=== PATIENT | female | born 1990 | race Caucasian/White ===

== ENCOUNTER → 2016-08-31 | Outpatient (REF) | payer OTHER ==
[~2016-08-31] MED LIST: PRENTAB9 PO
== END ==
LOC: M LAB REF 12:50
PROVIDERS: ATTEND Obstetrics & Gynecology
DX: Z36 Encounter for antenatal screening of mother (principal)

== ENCOUNTER → 2016-09-08 | Outpatient (CLI) | payer OTHER ==
--- NOTE | 2016-09-08 16:57 | REP ---
Limited obstetric sonography: History: Supervision of for amniotic fluid assessment and estimated weight. Findings: Scanning through the gravid uterus demonstrates a viable single intrauterine gestation in a cephalic lie. motion is observed and heart rate is recorded at 133 beats per minute. A posterior grade two placenta is seen without evidence of previa or abruption. Amniotic fluid is subjectively normal. Amniotic fluid index is normal at 15.3 cm (7.4 to 24.4 cm). Closed cervical length is 2.3 cm. There has been appropriate interval growth. Umbilical cord is seen draping across shoulders. Exam quality is inhibited some degree by advanced gestational age. SD ratio in the umbilical cord artery by Doppler is normal at 1.79. Biometry chart: BPD 9.1 cm = 36 weeks 6 days Head circumference 31.8 cm = 35 weeks 5 days Abdominal circumference 33.6 cm = 37 weeks 4 days Femur length 6.8 cm = 35 weeks 0 days Humeral length 6.0 cm = 34 weeks 5 days HC/AC ratio normal 0.95, cephalic index normal 0.82, estimated weight 2989 grams, 6 pounds 9 ounces, 40th percentile for 37 weeks 4 days. Impression: Viable single intrauterine gestation at 36 weeks 0 days by today's composite criteria. Expected gestational age estimate based on prior sonography 37 weeks 4 days. Estimated weight is in the 40th percentile. ELIS by prior sonography 09/25/2016. Signed by Antonio Gonzalez MD 09/08/2016 08:16 P
== END ==
LOC: M RAD 15:06
PROVIDERS: ATTEND Obstetrics & Gynecology
DX: O41.03X1 Oligohydramnios, third trimester, fetus 1 (principal); Z3A.36 36 weeks gestation of pregnancy

== ENCOUNTER 2016-10-01 03:04 | Inpatient (IN) | payer OTHER ==
[2016-10-01] VITALS (60 sets, daily range): BP systolic 84–140; BP diastolic 50–88
[~2016-10-01] VITALS: Ht 160 cm; Wt 66.0 kg
[2016-10-01] MEDS ORDERED: VALT500T PO (06:42)
[2016-10-01] MEDS ORDERED: FERR325T3 PO (06:44)
[2016-10-01] MEDS ORDERED: AMPICILLIN SOD 2 GM in D5W MINI-BAG PLUS 100 ML IV STA (07:31)
--- NOTE | 2016-10-01 07:42 | HPE ---
DATE OF ADMISSION: 10/01/2016 REASON FOR ADMISSION: Labor. HISTORY OF PRESENT ILLNESS: This patient is a 26-year-old, 1, para 0, who presents at 40 weeks 6 days estimated gestational age by a first trimester ultrasound with complaints of contractions. She reports active movements, but denies any vaginal bleeding or leakage of fluid. She reports that the contractions started earlier in the evening and increased in intensity and frequency throughout the night. Her course has been unremarkable. She initiated care in the first trimester and has been appropriate throughout. PAST MEDICAL HISTORY: None. PAST SURGICAL HISTORY: None. PAST OBSTETRICAL HISTORY: She is a 1, para 0. 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 She is afebrile. GENERAL APPEARANCE: Well appearing, in no acute distress. She has a Category 1 heart rate tracing with contractions approximately every 3 minutes on the tocometer. CARDIOVASCULAR: Heart regular rate and rhythm. LUNGS: Clear to auscultation bilaterally. ABDOMEN: Soft. Gravid. Nontender. Estimated weight (EFW) 3600 grams. CERVICAL EXAM: She is 3 cm, completely effaced, -2 station. LABS: Blood type is O positive. Antibody screen is negative. Rubella is immune. RPR nonreactive. Hepatitis surface antigen is negative. HIV is negative. Hepatitis C nonreactive. Chlamydia and gonorrhea screens are negative. She had a normal one hour Glucola. She is GBS positive. ASSESSMENT: 1. This patient is a 26-year-old, 1, at 40 weeks and 6 days estimated gestational age who appears to be in labor. 2. Reassuring status. 3. GBS positive. PLAN: 1. To admit to labor and delivery. CBC, RPR, type and screen. 2. Antibiotics for GBS prophylaxis. 3. Patient is a good candidate for an epidural. 4. Anticipate spontaneous vaginal delivery.
[2016-10-01 08:27] LABS: MEAN CORPUSCULAR HEMOGLOBIN 29.7 pg (27.0-33.0); MEAN CORPUSCULAR HGB CONC 33.3 g/dl (32.0-36.5); MEAN CORPUSCULAR VOLUME 89.3 fl (80.0-96.0); RED CELL DISTRIBUTION WIDTH 15.1 % (11.5-14.5); WHITE BLOOD COUNT 11.8 K/mm3 (4.0-10.0)
[2016-10-01] MEDS ORDERED: FENTANYL 2MCG/ML ROPIVACAINE 0.2% NACL 250 ML CADD As Ordered ONE (09:11)
[2016-10-01] MEDS ORDERED: FENTANYL/ROPIVACAINE/NACL CADD 250 ML EPIDURAL SCH (10:30)
[2016-10-01] MEDS ORDERED: EPIDURAL COMMENT XX SCH (10:30)
[2016-10-01] MEDS ORDERED: EPIDURAL/PCA KEYS XX PRN (10:30)
[2016-10-01] MEDS ORDERED: REFRIGERATOR IV KEYS XX PRN (10:30)
[2016-10-01] MEDS ORDERED: LACTATED RINGER'S 1000 ML IV PRN (10:30)
[2016-10-01] MEDS ORDERED: ONDANSETRON 4MG/2ML VIAL (J2405) IV PRN ×2 (10:30→22:30)
[2016-10-01] MEDS ORDERED: diphenhydrAMINE INJ 50MG/ML VIAL (J1200) IV PRN (10:30)
[2016-10-01] MEDS ORDERED: NALOXONE INJ 0.4 MG/1 ML VIAL (J2310) IV PRN (10:30)
[2016-10-01] MEDS: AMPICILLIN SOD 1 GM in D5W MINI-BAG PLUS 50 ML IV SCH ×2 (12:47→17:06)
[2016-10-01] MEDS ORDERED: OXYTOCIN DRIP 30 UNITS in APPROPRIATE DILUENT 1 EA IV SCH ×2 (17:15→22:27)
[2016-10-01] MEDS: ePHEDrine SULFATE 25 MG/5 ML(5MG/ML) SYRINGE IV PRN ×3 (17:51→18:04)
[2016-10-01] MEDS ORDERED: LR 1,000 ML IV SCH (22:27)
[2016-10-01] MEDS ORDERED: RHOGAM 300 MCG (1500 IU) INJ (J2790) IM SCH (22:30)
[2016-10-01] MEDS ORDERED: ACETAMINOPHEN 500 MG TAB PO PRN (22:30)
[2016-10-01] MEDS ORDERED: DIBUCAINE 1% OINTMENT 30GM TOP PRN (22:30)
[2016-10-01] MEDS ORDERED: METHYLERGONOVINE MALEATE 0.2 MG TAB PO PRN (22:30)
[2016-10-01] MEDS ORDERED: PROMETHAZINE 25 MG TAB PO PRN (22:30)
[2016-10-01] MEDS ORDERED: IBUPROFEN 800 MG TAB PO PRN (22:30)
[2016-10-01] MEDS ORDERED: DOCUSATE SODIUM 100 MG CAP PO PRN (22:30)
[2016-10-01] MEDS ORDERED: MEASLES,MUMPS,RUBELLA VACCINE INJ (MMR-II) (90707) SC SCH (22:30)
[2016-10-02 01:15] VITALS: BP 122/58
[2016-10-02 06:00] VITALS: BP 115/59
[2016-10-02] MEDS: PRENATAL VITAMIN TAB PO SCH (09:53)
[2016-10-02 18:12] VITALS: BP 108/58
[2016-10-03 06:44] VITALS: BP 109/63
[2016-10-03] MEDS ORDERED: ACET50TA PO (08:05)
[2016-10-03] MEDS ORDERED: IBUP-1114 PO (08:08)
[2016-10-03] MEDS: PRENATAL VITAMIN TAB PO SCH (10:30)
== END 2016-10-03 10:50 | disposition home or self-care (01) | DRG 775 ==
LOC: M LDO 03:04 → M LDI 07:18 → M OBS 10-02 01:19
PROVIDERS: ADMIT Obstetrics & Gynecology; ATTEND Obstetrics & Gynecology
PROC: 10E0XZZ Delivery of Products of Conception, External Approach (ICD-10-PCS; principal; 2016-10-01)
PROC: 0HQ9XZZ Repair Perineum Skin, External Approach (ICD-10-PCS; 2016-10-01)
DX: O48.0 Post-term pregnancy (principal); O99.824 Streptococcus B carrier state complicating childbirth; Z3A.40 40 weeks gestation of pregnancy; O70.0 First degree perineal laceration during delivery; Z37.0 Single live birth

== ENCOUNTER → 2017-10-25 | Outpatient (CLI) | payer OTHER ==
[2017-10-25 08:35] LABS: BASO % 0.6 % (0.0-1.0); EOS # 0.1 10^3/uL (0.0-0.50); EOS % 0.9 % (0.0-3.0); HEMATOCRIT 40.6 % (36.0-47.0); HEMOGLOBIN 13.6 g/dl (12.0-16.0); IMMATURE GRANULOCYTE % 0.2 % (0-3.0); LYMPH # 2.1 10^3/uL (1.5-6.5); LYMPH % 38.8 % (24.0-44.0); MEAN CORPUSCULAR HEMOGLOBIN 30.6 pg (27.0-33.0); MEAN CORPUSCULAR HGB CONC 33.5 g/dl (32.0-36.5); MEAN CORPUSCULAR VOLUME 91.4 fl (80.0-96.0); MONO # 0.3 10^3/uL (0.0-0.8); MONO % 6.3 % (0.0-5.0); NEUTROPHILS # 2.9 10^3/uL (1.8-7.7); NEUTROPHILS % 53.2 % (36.0-66.0); PLATELET COUNT, AUTOMATED 260 10^3/uL (150-450); RED BLOOD COUNT 4.44 10^6/uL (4.00-5.40); RED CELL DISTRIBUTION WIDTH 13.2 % (11.5-14.5); WHITE BLOOD COUNT 5.4 10^3/uL (4.0-10.0)
[2017-10-25 09:06] LABS: ALBUMIN 3.9 GM/DL (3.2-5.2); ALBUMIN/GLOBULIN RATIO 1.08 (1.00-1.93); ALKALINE PHOSPHATASE 59 U/L (45-117); ALT/SGPT 15 U/L (12-78); ANION GAP 8 MEQ/L (8-16); AST/SGOT 14 U/L (7-37); BILIRUBIN,TOTAL 0.4 MG/DL (0.2-1.0); BLOOD UREA NITROGEN 6 MG/DL (7-18); CALCIUM LEVEL 8.5 MG/DL (8.5-10.1); CARBON DIOXIDE LEVEL 27 MEQ/L (21-32); CHLORIDE LEVEL 106 MEQ/L (98-107); CREATININE FOR GFR 0.84 MG/DL (0.55-1.30); GLOMERULAR FILTRATION RATE > 60.0 (>60); GLUCOSE, FASTING 90 MG/DL (70-100); POTASSIUM SERUM 3.8 MEQ/L (3.5-5.1); SODIUM LEVEL 141 MEQ/L (136-145); TOTAL PROTEIN 7.5 GM/DL (6.4-8.2)
== END ==
LOC: M LAB 08:05
DX: R53.83 Other fatigue (principal)

== ENCOUNTER → 2018-02-14 | Outpatient (CLI) | payer OTHER ==
[2018-02-14 07:52] LABS: BASO % 0.5 % (0.0-1.0); EOS # 0.1 10^3/uL (0.0-0.50); EOS % 1.1 % (0.0-3.0); HEMATOCRIT 39.2 % (36.0-47.0); HEMOGLOBIN 13.3 g/dl (12.0-15.5); IMMATURE GRANULOCYTE % 0.4 % (0-3.0); LYMPH # 2.5 10^3/uL (1.5-6.5); LYMPH % 30.7 % (24.0-44.0); MEAN CORPUSCULAR HEMOGLOBIN 31.2 pg (27.0-33.0); MEAN CORPUSCULAR HGB CONC 33.9 g/dl (32.0-36.5); MONO # 0.5 10^3/uL (0.0-0.8); MONO % 5.8 % (0.0-5.0); NEUTROPHILS % 61.5 % (36.0-66.0); PLATELET COUNT, AUTOMATED 259 10^3/uL (150-450); RED BLOOD COUNT 4.26 10^6/uL (4.00-5.40); RED CELL DISTRIBUTION WIDTH 13.5 % (11.5-14.5); WHITE BLOOD COUNT 8.1 10^3/uL (4.0-10.0)
[2018-02-14 11:01] LABS: CHLAMYDIA DNA AMPLIFICATION NEGATIVE (NEGATIVE); GC DNA AMPLIFICATION NEGATIVE (NEGATIVE)
[2018-02-15 10:16] LABS: RUBELLA IgG QUALITATIVE IMMUNE (IMMUNE)
[2018-02-15 10:33] LABS: HBsAg Prenatal NEGATIVE (NEGATIVE)
[2018-02-15 10:46] LABS: HEPATITIS C VIRUS ABY INDEX 0.1 INDEX (<0.8)
[2018-02-15 10:46] LABS: HIV 1&2 SCREEN CENTAUR NEGATIVE (NEGATIVE)
== END ==
LOC: M LAB 06:57
DX: Z34.81 Encounter for supervision of other normal pregnancy, first trimester (principal); Z3A.00 Weeks of gestation of pregnancy not specified
CPT/HCPCS: 86762

== ENCOUNTER → 2018-03-06 | Outpatient (REF) | payer OTHER | LOC: M LABDRAW1 10:57 | DX: Z36.89 Encounter for other specified antenatal screening (principal) | CPT/HCPCS: 36415 ==

== ENCOUNTER → 2018-04-11 | Outpatient (CLI) | payer OTHER, SELFPAY | LOC: M LAB 12:32 | DX: Z34.81 Encounter for supervision of other normal pregnancy, first trimester (principal) | CPT/HCPCS: 36415 ==

== ENCOUNTER → 2018-04-28 | Outpatient (CLI) | payer OTHER, SELFPAY | LOC: M RAD 08:34 | DX: Z36.89 Encounter for other specified antenatal screening (principal); Z3A.20 20 weeks gestation of pregnancy | CPT/HCPCS: 76811 ==

== ENCOUNTER → 2018-05-31 | Outpatient (CLI) | payer BC | LOC: M RAD 14:35 | DX: Z34.82 Encounter for supervision of other normal pregnancy, second trimester (principal); Z36.89 Encounter for other specified antenatal screening; Z3A.24 24 weeks gestation of pregnancy | CPT/HCPCS: 76816 ==

== ENCOUNTER → 2018-06-14 | Outpatient (CLI) | payer BC ==
[2018-06-14 08:30] LABS: HEMATOCRIT 34.1 % (36.0-47.0); HEMOGLOBIN 11.2 g/dl (12.0-15.5); MEAN CORPUSCULAR HEMOGLOBIN 32.6 pg (27.0-33.0); MEAN CORPUSCULAR HGB CONC 32.8 g/dl (32.0-36.5); MEAN CORPUSCULAR VOLUME 99.1 fl (80.0-96.0); PLATELET COUNT, AUTOMATED 257 10^3/uL (150-450); RED BLOOD COUNT 3.44 10^6/uL (4.00-5.40); WHITE BLOOD COUNT 10.1 10^3/uL (4.0-10.0)
[2018-06-14 08:39] LABS: GLUCOSE CHALLENGE TEST 1 HOUR 92 MG/DL (LESS THAN 140)
== END ==
LOC: M LAB 06:17
DX: Z34.82 Encounter for supervision of other normal pregnancy, second trimester (principal); Z3A.00 Weeks of gestation of pregnancy not specified
CPT/HCPCS: 82950

== ENCOUNTER → 2018-08-18 | Outpatient (REF) | payer BC ==
[~2018-08-18] MED LIST changes: +FERR325T3 PO; +IBUP-1114 PO; +MAPA500T2 PO; +VALT500T PO
== END ==
LOC: M LAB REF 16:36
PROVIDERS: ATTEND Advanced Practice Midwife
DX: Z34.83 Encounter for supervision of other normal pregnancy, third trimester (principal)

== ENCOUNTER 2018-09-15 04:25 | Inpatient (IN) | payer BC ==
[2018-09-15] VITALS (60 sets, daily range): BP systolic 86–133; BP diastolic 44–90
[~2018-09-15] VITALS: Ht 160 cm; Wt 72.5 kg
[2018-09-15] MEDS ORDERED: PENICILLIN G POTASSIUM IV 5 MU in D5W MINI-BAG PLUS 100 ML IV STA (07:15)
[2018-09-15 07:49] LABS: HEMATOCRIT 36.6 % (36.0-47.0); HEMOGLOBIN 11.9 g/dl (12.0-15.5); MEAN CORPUSCULAR HEMOGLOBIN 29.9 pg (27.0-33.0); MEAN CORPUSCULAR HGB CONC 32.5 g/dl (32.0-36.5); PLATELET COUNT, AUTOMATED 277 10^3/uL (150-450); RED BLOOD COUNT 3.98 10^6/uL (4.00-5.40)
[2018-09-15] MEDS ORDERED: FENTANYL 2MCG/ML ROPIVACAINE 0.2% IN 0.9% NACL 100ML IVBAG As Ordered ONE (08:43)
[2018-09-15] MEDS ORDERED: ePHEDrine SULFATE 25 MG/5 ML(5MG/ML) SYRINGE As Ordered ONE (09:15)
[2018-09-15] MEDS ORDERED: ePHEDrine SULFATE 25 MG/5 ML(5MG/ML) SYRINGE IV PRN (09:45)
[2018-09-15] MEDS ORDERED: EPIDURAL COMMENT XX SCH (09:45)
[2018-09-15] MEDS ORDERED: NALOXONE INJ 0.4 MG/1 ML VIAL (J2310) IV PRN (09:45)
[2018-09-15] MEDS ORDERED: ONDANSETRON 4MG/2ML VIAL (J2405) IV PRN ×2 (09:45→15:30)
[2018-09-15] MEDS ORDERED: REFRIGERATOR IV KEYS XX PRN (09:45)
[2018-09-15] MEDS ORDERED: EPIDURAL/PCA KEYS XX PRN (09:45)
[2018-09-15] MEDS ORDERED: FENTANYL/ROPIVACAINE/NACL BAG 100 ML EPIDURAL SCH (09:45)
[2018-09-15] MEDS ORDERED: diphenhydrAMINE INJ 50MG/ML VIAL (J1200) IV PRN (09:45)
[2018-09-15] MEDS ORDERED: LACTATED RINGER'S 1000 ML IV PRN (09:45)
[2018-09-15] MEDS ORDERED: PENICILLIN G POTASSIUM IV 2.5 MU in APPROPRIATE DILUENT 1 EA IV SCH (12:00)
--- NOTE | 2018-09-15 13:04 | NUR ---
L&D H&P HPI: 28 year old at 40+1 weeks estimated gestation. Expected date of confinement: 09/14/18. dated by LMP c/w first TM US. Presented earlier this morning with painful,frequent uterine contractions for several hour s. Denies vaginal bleeding, loss of fluid. Reports regular movement. course uncomplicated. She has been taking Valtrex 500mg BID for gHSV prophylaxis. History of LGA/prolonged second stage of labor with first delivery. labs: Blood type O+, antibody screen negative, rubella immune, VDRL nonreactive , hepatitis B surface antigen negative, HIV negative, hepatitis C antibody negative, GC/CT negative, aneuploidy/maternal serum screening: negative, 1 hour glucose challenge test: 92, GBS positive. Vaccinations: Tdap 06/26/18 Flu vaccine given Radiology/OB US: no anomalies or placental abnormalities detected. History Past medical history: seasonal allergies Surgical history: none Medications: PNV Allergies: NKDA INFORMATION ASSURANCE ENGINEER history: one previous gHSV outbreak (none during this ), no other STI OB history: G1: 09/2016: 9lbs 14oz, after prolonged second stage (4 hours), no dystocia or severe Social history: no t/e/d Family history: no MR, VTE Objective Vitals: Normotensive, mild tachycardia, afebrile Abdomen: Uterine fundal height consistent with dates. No guarding or rebound tenderness. Extremities: No clubbing, cyanosis or edema. Sterile vaginal exam: 3-4 cm, 80 %effacement, -3 station, cephalic, intact (upon admission) External monitoring: heart rate category 1 Tocodynamometer: contractions occurring 2-7min Assessment/Plan 28 year old at 40+1 weeks gestation. Diagnosis: active labor at term. Reassuring and maternal status. -Admit to labor and delivery with routine labs and orders -External monitoring and tocodynamometer -Pediatrics and anesthesia consultations as needed. -GBS prophylaxis with IV penicillin -Augment labor with Pitocin as needed Dr. Eliazar Ricks, DO, FACOG
--- NOTE | 2018-09-15 13:09 | NUR ---
Progress Note Pt comfortable with epidural. Small amount of bloody show, but no large loss of fluid. +FM. Normotensive, tachycardic 120-140bpm (O2 sat 95-100%), afebrile SVE: 9cm, 100, -1, bulging intact membranes (around [id number]) EFM: Cat I [place]: ctxs every 2-5min A/P: Normal progression of active labor. Approaching second stage of labor. Reassuring maternal and status. -Repeat SVE 2-4 hours or sooner PRN Heladio Ricks DO
--- NOTE | 2018-09-15 15:23 | NUR ---
Delivery note Spontaneous vaginal delivery Estimated gestational age at delivery: 40+1 weeks The active phase and second stage of labor progressed in normal fashion with epidural anesthesia. Patient DID NOT receive Pitocin labor augmentation. She received a full course of GBS prophylaxis. Pt had screened GBS+. FHR Cat I throughout labor. The head delivered left occiput anterior and restituted left occiput transverse. No nuchal cord was noted. The anterior shoulder delivered with gentle downward guidance and the remainder of the body delivered with ease. Cord clamping was delayed for approximately 1 minute after delivery. After doubly clamping the cord, I guided the FOB to cut the cord. The was placed on the patient's chest for immediate bonding. [place] data: Apgars 9 and 9. weight 3720 grams 8 pounds, 3 ounces. Time of delivery: 1456. Sex: Female. The third stage of labor was actively managed with a bolus of IV Pitocin (30 units in 500 mL of normal saline). The placenta delivered completely intact with no missing cotyledons at 1502. A three-vessel cord with a central insertion was noted. After delivery of the placenta, the uterine fundus was approximately 2 cm below the umbilicus and firm. IV Pitocin was continued to maintain uterine tone. A normal, low level of uterine bleeding was noted. The cervix, vagina, vulva and perineum were inspected for lacerations. No laceration was noted. Excellent hemostasis was noted. Estimated blood loss: 200ml. All sponges, needles, and instruments were accounted for per [facility] [employer] department protocol. Eliazar Ricks D.O., F.A.C.ODebra.
[2018-09-15] MEDS ORDERED: OXYTOCIN DRIP 30 UNITS in APPROPRIATE DILUENT 1 EA IV SCH (15:26)
[2018-09-15] MEDS ORDERED: LR 1,000 ML IV SCH (15:26)
[2018-09-15] MEDS ORDERED: PROMETHAZINE 25 MG TAB PO PRN (15:30)
[2018-09-15] MEDS ORDERED: IBUPROFEN 800 MG TAB PO PRN (15:30)
[2018-09-15] MEDS ORDERED: MEASLES,MUMPS,RUBELLA VACCINE INJ (MMR-II) (90707) SC SCH (15:30)
[2018-09-15] MEDS ORDERED: RHOGAM 300 MCG (1500 IU) INJ (J2790) IM SCH (15:30)
[2018-09-15] MEDS ORDERED: DOCUSATE SODIUM 100 MG CAP PO PRN (15:30)
[2018-09-15] MEDS ORDERED: DIBUCAINE 1% OINTMENT 30GM TOP PRN (15:30)
[2018-09-15] MEDS ORDERED: ACETAMINOPHEN 500 MG TAB PO PRN (15:30)
[2018-09-16 06:00] VITALS: BP 102/64
[2018-09-16] MEDS ORDERED: PRENATAL VITAMINS CHEWABLE TABLET PO SCH (09:00)
[2018-09-16] MEDS ORDERED: IBUP-1114 PO (09:27)
[2018-09-16] MEDS ORDERED: MAPA500T2 PO (09:27)
== END 2018-09-16 17:13 | disposition home or self-care (01) | DRG 560 ==
LOC: M LDO 04:25 → M LDI 06:59 → M OBS 17:25
PROVIDERS: ADMIT Obstetrics & Gynecology; ATTEND Obstetrics & Gynecology
PROC: 10E0XZZ Delivery of Products of Conception, External Approach (ICD-10-PCS; principal; 2018-09-15)
DX: O48.0 Post-term pregnancy (principal); Z3A.40 40 weeks gestation of pregnancy; O99.824 Streptococcus B carrier state complicating childbirth; Z37.0 Single live birth

== ENCOUNTER → 2018-11-29 | Outpatient (REF) | payer BC | LOC: M LAB REF 13:40 | PROVIDERS: ATTEND Obstetrics & Gynecology | DX: Z12.4 Encounter for screening for malignant neoplasm of cervix (principal) ==

== ENCOUNTER → 2019-01-12 | Outpatient (REF) | payer BC ==
[2019-01-12 12:04] LABS: BASO % 0.5 % (0.0-1.0); EOS # 0.1 10^3/uL (0.0-0.50); EOS % 1.2 % (0.0-3.0); HEMATOCRIT 39.6 % (36.0-47.0); HEMOGLOBIN 12.9 g/dl (12.0-15.5); LYMPH # 2.3 10^3/uL (1.5-6.5); LYMPH % 38.6 % (24.0-44.0); MEAN CORPUSCULAR HEMOGLOBIN 29.9 pg (27.0-33.0); MEAN CORPUSCULAR HGB CONC 32.6 g/dl (32.0-36.5); MEAN CORPUSCULAR VOLUME 91.9 fl (80.0-96.0); MONO # 0.3 10^3/uL (0.0-0.8); MONO % 5.7 % (0.0-5.0); NEUTROPHILS # 3.2 10^3/uL (1.8-7.7); NEUTROPHILS % 53.8 % (36.0-66.0); PLATELET COUNT, AUTOMATED 282 10^3/uL (150-450); RED BLOOD COUNT 4.31 10^6/uL (4.00-5.40); WHITE BLOOD COUNT 5.9 10^3/uL (4.0-10.0)
[2019-01-12 12:27] LABS: ALT/SGPT 33 U/L (12-78); BILIRUBIN,TOTAL 0.4 MG/DL (0.2-1.0); BLOOD UREA NITROGEN 10 MG/DL (7-18); CARBON DIOXIDE LEVEL 28 MEQ/L (21-32); CHLORIDE LEVEL 106 MEQ/L (98-107); CHOLESTEROL LEVEL 211 MG/DL (<200); CREATININE FOR GFR 0.66 MG/DL (0.55-1.30); GLOMERULAR FILTRATION RATE > 60.0 (>60); GLUCOSE, FASTING 90 MG/DL (70-100); HDL CHOLESTEROL 72 MG/DL (>40); LDL CHOLESTEROL 124 MG/DL (<100); NON-HDL-C 139 MG/DL; POTASSIUM SERUM 4.1 MEQ/L (3.5-5.1); SODIUM LEVEL 141 MEQ/L (136-145); TOTAL PROTEIN 7.6 GM/DL (6.4-8.2); TRIGLYCERIDES LEVEL 77 MG/DL (<150)
== END ==
LOC: M LABDRAW1 11:47
PROVIDERS: ATTEND Family Medicine
DX: Z00.00 Encounter for general adult medical examination without abnormal findings (principal)

== ENCOUNTER → 2019-04-05 | Outpatient (CLI) | payer BC ==
[2019-04-05 13:31] LABS: BASO % 0.2 % (0.0-1.0); EOS # 0.1 10^3/uL (0.0-0.50); EOS % 0.9 % (0.0-3.0); HEMATOCRIT 41.5 % (36.0-47.0); HEMOGLOBIN 13.7 g/dl (12.0-15.5); LYMPH # 2.5 10^3/uL (1.5-4.5); LYMPH % 28.1 % (24.0-44.0); MEAN CORPUSCULAR HEMOGLOBIN 30.8 pg (27.0-33.0); MEAN CORPUSCULAR VOLUME 93.3 fl (80.0-96.0); MONO # 0.5 10^3/uL (0.0-0.8); NEUTROPHILS # 5.9 10^3/uL (1.8-7.7); NEUTROPHILS % 65.5 % (36.0-66.0); PLATELET COUNT, AUTOMATED 310 10^3/uL (150-450); RED BLOOD COUNT 4.45 10^6/uL (4.00-5.40)
[2019-04-05 15:31] LABS: CHLAMYDIA DNA AMPLIFICATION NEGATIVE (NEGATIVE); GC DNA AMPLIFICATION NEGATIVE (NEGATIVE)
[2019-04-06 12:02] LABS: HEPATITIS C VIRUS ABY INDEX 0.1 INDEX (<0.8); HIV 1&2 SCREEN CENTAUR NEGATIVE (NEGATIVE); RUBELLA IgG QUALITATIVE IMMUNE (IMMUNE)
== END ==
LOC: M SMT 10:24
PROVIDERS: ATTEND Obstetrics & Gynecology
DX: Z34.81 Encounter for supervision of other normal pregnancy, first trimester (principal)

== ENCOUNTER → 2019-04-25 | Outpatient (CLI) | payer BC | LOC: M SMT 15:43 | PROVIDERS: ATTEND Advanced Practice Midwife | DX: Z34.81 Encounter for supervision of other normal pregnancy, first trimester (principal); Z3A.00 Weeks of gestation of pregnancy not specified ==

== ENCOUNTER → 2019-08-28 | Outpatient (CLI) | payer BC, OTHER ==
[2019-08-28 17:34] LABS: HEMATOCRIT 32.7 % (36.0-47.0); HEMOGLOBIN 10.3 g/dl (12.0-15.5); MEAN CORPUSCULAR HEMOGLOBIN 30.2 pg (27.0-33.0); MEAN CORPUSCULAR HGB CONC 31.5 g/dl (32.0-36.5); MEAN CORPUSCULAR VOLUME 95.9 fl (80.0-96.0); PLATELET COUNT, AUTOMATED 276 10^3/uL (150-450); RED BLOOD COUNT 3.41 10^6/uL (4.00-5.40); WHITE BLOOD COUNT 11.4 10^3/uL (4.0-10.0)
== END ==
LOC: M PLALAB 12:49
PROVIDERS: ATTEND Obstetrics & Gynecology
DX: Z36.89 Encounter for other specified antenatal screening (principal)

== ENCOUNTER → 2019-10-15 | Outpatient (REF) | payer BC, OTHER | LOC: M SFHCWAGY 17:02 | PROVIDERS: ATTEND Obstetrics & Gynecology | DX: Z36.85 Encounter for antenatal screening for Streptococcus B (principal) ==

== ENCOUNTER 2019-11-05 07:01 | Inpatient (IN) | payer BC, OTHER ==
[2019-11-05] VITALS (29 sets, daily range): BP systolic 97–145; BP diastolic 52–85
[~2019-11-05] VITALS: Ht 160 cm; Wt 73.6 kg
[2019-11-05] MEDS ORDERED: PENICILLIN G POTASSIUM IV 5 MU in D5W MINI-BAG PLUS 100 ML IV STA (07:40)
[2019-11-05] MEDS ORDERED: VALT500T PO (08:01)
[2019-11-05 08:18] LABS: HEMATOCRIT 33.3 % (36.0-47.0); HEMOGLOBIN 10.5 g/dl (12.0-15.5); MEAN CORPUSCULAR HEMOGLOBIN 27.3 pg (27.0-33.0); MEAN CORPUSCULAR HGB CONC 31.5 g/dl (32.0-36.5); MEAN CORPUSCULAR VOLUME 86.7 fl (80.0-96.0); PLATELET COUNT, AUTOMATED 289 10^3/uL (150-450); RED BLOOD COUNT 3.84 10^6/uL (4.00-5.40); WHITE BLOOD COUNT 12.5 10^3/uL (4.0-10.0)
[2019-11-05] MEDS ORDERED: FENTANYL 2MCG/ML ROPIVACAINE 0.2% IN 0.9% NACL 100ML IVBAG As Ordered ONE (08:39)
[2019-11-05] MEDS ORDERED: OXYTOCIN 30 UNITS IN 0.9% NaCl 500ML IV BAG (J2590) As Ordered ONE (08:52)
[2019-11-05] MEDS ORDERED: diphenhydrAMINE INJ 50MG/ML VIAL (J1200) IV PRN (09:30)
[2019-11-05] MEDS ORDERED: FENTANYL/ROPIVACAINE/NACL BAG 100 ML EPIDURAL SCH (09:30)
[2019-11-05] MEDS ORDERED: NALOXONE INJ 0.4 MG/1 ML VIAL (J2310) IV PRN (09:30)
[2019-11-05] MEDS ORDERED: REFRIGERATOR IV KEYS XX PRN (09:30)
[2019-11-05] MEDS ORDERED: EPIDURAL/PCA KEYS XX PRN (09:30)
[2019-11-05] MEDS ORDERED: LACTATED RINGER'S 1000 ML IV PRN (09:30)
[2019-11-05] MEDS ORDERED: ePHEDrine SULFATE 25 MG/5 ML(5MG/ML) SYRINGE IV PRN (09:30)
[2019-11-05] MEDS ORDERED: ONDANSETRON 4MG/2ML VIAL (J2405) IV PRN ×2 (09:30→15:00)
[2019-11-05] MEDS ORDERED: EPIDURAL COMMENT XX SCH (09:30)
[2019-11-05] MEDS ORDERED: PENICILLIN G POTASSIUM IV 2.5 MU in IV 1 EA IV SCH (12:00)
[2019-11-05] MEDS ORDERED: OXYTOCIN DRIP 30 UNITS in IV 1 EA IV SCH (14:48)
[2019-11-05] MEDS ORDERED: ACETAMINOPHEN TAB 650MG DOSE (2X325MG) PO PRN (15:00)
[2019-11-05] MEDS ORDERED: ACETAMINOPHEN 500 MG TAB PO PRN (15:00)
[2019-11-05] MEDS ORDERED: IBUPROFEN 800 MG TAB PO PRN (15:00)
[2019-11-05] MEDS ORDERED: DIBUCAINE 1% OINTMENT 30GM TOP PRN (15:00)
[2019-11-05] MEDS ORDERED: RHOGAM 300 MCG (1500 IU) INJ (J2790) IM SCH (15:00)
[2019-11-05] MEDS ORDERED: MEASLES,MUMPS,RUBELLA VACCINE INJ (MMR-II) (90707) SC SCH (15:00)
[2019-11-05] MEDS ORDERED: PROMETHAZINE 25 MG TAB PO PRN (15:00)
[2019-11-05] MEDS ORDERED: IBUPROFEN 600 MG TAB PO PRN (15:00)
[2019-11-05] MEDS ORDERED: DOCUSATE SODIUM 100 MG CAP PO PRN (15:00)
[2019-11-06 06:00] VITALS: BP 108/59
[2019-11-06] MEDS ORDERED: ACET-683 PO (07:36)
[2019-11-06] MEDS ORDERED: IBUP80TA PO (07:36)
[2019-11-06] MEDS ORDERED: PRENATAL VITAMINS CHEWABLE TABLET PO SCH (09:00)
== END 2019-11-06 18:05 | disposition home or self-care (01) | DRG 560 ==
LOC: M LDO 07:01 → EEVIPCON 07:37 → M LDI 07:37 → M OBS 17:11
PROVIDERS: ADMIT Advanced Practice Midwife; ATTEND Obstetrics & Gynecology
PROC: 10E0XZZ Delivery of Products of Conception, External Approach (ICD-10-PCS; principal; 2019-11-05)
PROC: 0HQ9XZZ Repair Perineum Skin, External Approach (ICD-10-PCS; 2019-11-05)
DX: O99.824 Streptococcus B carrier state complicating childbirth (principal); Z3A.39 39 weeks gestation of pregnancy; Z37.0 Single live birth; O70.0 First degree perineal laceration during delivery

== ENCOUNTER → 2020-11-25 | Outpatient (REF) | payer BC, OTHER ==
[~2020-11-25] MED LIST changes: +ACET-683 PO; +IBUP80TA PO
[2020-11-25 17:59] LABS: BASO % 0.3 % (0.0-1.0); EOS # 0.1 10^3/uL (0.0-0.5); HEMATOCRIT 41.9 % (36.0-47.0); HEMOGLOBIN 13.4 g/dl (12.0-15.5); LYMPH # 2.5 10^3/uL (1.5-5.0); LYMPH % 26.1 % (24.0-44.0); MEAN CORPUSCULAR HEMOGLOBIN 30.7 pg (27.0-33.0); MEAN CORPUSCULAR VOLUME 95.9 fl (80.0-96.0); MONO # 0.4 10^3/uL (0.0-0.8); MONO % 4.2 % (2.0-8.0); NEUTROPHILS # 6.6 10^3/uL (1.5-8.5); NEUTROPHILS % 68.2 % (36.0-66.0); PLATELET COUNT, AUTOMATED 266 10^3/uL (150-450); RED BLOOD COUNT 4.37 10^6/uL (4.00-5.40); WHITE BLOOD COUNT 9.6 10^3/uL (4.0-10.0)
[2020-11-25 18:44] LABS: ALBUMIN 4.2 GM/DL (3.2-5.2); ALT/SGPT 14 U/L (12-78); BILIRUBIN,TOTAL 0.3 MG/DL (0.2-1.0); BLOOD UREA NITROGEN 9 MG/DL (7-18); CALCIUM LEVEL 9.5 MG/DL (8.5-10.1); CARBON DIOXIDE LEVEL 27 MEQ/L (21-32); CHLORIDE LEVEL 106 MEQ/L (98-107); CHOLESTEROL LEVEL 212 MG/DL (<200); CHOLESTEROL RISK RATIO 3.072 (<5); CREATININE FOR GFR 0.67 MG/DL (0.55-1.30); GLOMERULAR FILTRATION RATE > 60.0 (>60); GLUCOSE, FASTING 87 MG/DL (70-100); HDL CHOLESTEROL 69 MG/DL (>40); LDL CHOLESTEROL 128 MG/DL (<100); NON-HDL-C 143 MG/DL; POTASSIUM SERUM 4.3 MEQ/L (3.5-5.1); SODIUM LEVEL 140 MEQ/L (136-145); TOTAL PROTEIN 7.3 GM/DL (6.4-8.2); TRIGLYCERIDES LEVEL 73 MG/DL (<150)
== END ==
LOC: M LABDRWAD 16:26
PROVIDERS: ATTEND Family Medicine
DX: Z00.00 Encounter for general adult medical examination without abnormal findings (principal)